=== PATIENT | female | born 1955 | race Caucasian/White ===

== ENCOUNTER 2017-09-01 01:26 | Inpatient (IN) | payer MEDICAID ==
[~2017-09-01] VITALS: Ht 175.3 cm; Wt 55.1 kg
[~2017-09-01 01:26] MED LIST: ASPI-611 PO; ATEN25TA7 PO; CALC668T PO; CLON-529 PO; CLOP75TA35 PO; DIPH-423 PO; FOLI1TAB34 PO; FURO40TA4 PO; GABA-532 PO; HYDR-4069 PO; LACT1CAP57 PO; LANTUS SQ; ONDA4TAB9 PO; PROP15TA PO; QUELT PO
[2017-09-01] MEDS ORDERED: HYDR-4069 PO (03:51)
[2017-09-01] MEDS ORDERED: ondansetron/PF 4mg/2ml inj IV PRN (04:00)
[2017-09-01] MEDS ORDERED: acetaminophen 325mg tablet PO PRN (04:00)
[2017-09-01] MEDS ORDERED: morphine 2 MG/ML inj. syringe IV PRN (04:00)
[2017-09-01 04:19] VITALS: BP 168/75
[2017-09-01] MEDS: morphine 2 MG/ML inj. syringe IV PRN ×2 (04:27→09:24)
[2017-09-01 06:00] VITALS: BP 167/84
[2017-09-01 06:17] LABS: BASOPHILS % (AUTO) 0.5 % (0-1); EOSINOPHILS # (AUTO) 0.3 X10'3 (0-0.9); EOSINOPHILS % (AUTO) 4.5 % (0-6); HEMATOCRIT 33.3 % (35.0-45.0); HEMOGLOBIN 11.3 g/dl (12.0-16.0); LYMPHOCYTES # (AUTO) 1.1 X10'3 (1.1-4.8); LYMPHOCYTES % (AUTO) 16.7 % (21-51); MEAN CORPUSCULAR HEMOGLOBIN 32.2 PG (27.0-31.0); MEAN CORPUSCULAR VOLUME 94.7 FL (78-98); MEAN PLATELET VOLUME 8.5 FL (7.4-10.4); MONOCYTES # (AUTO) 0.4 X10'3 (0-0.9); MONOCYTES % (AUTO) 5.8 % (2-12); NEUTROPHILS # (AUTO) 4.6 X10'3 (1.8-7.7); NEUTROPHILS % (AUTO) 72.5 % (42-75); PLATELET COUNT 116 X10'3 (140-440); RED BLOOD COUNT 3.51 X10'6 (4.20-5.60); RED CELL DISTRIBUTION WIDTH 16.7 % (11.5-14.5); WHITE BLOOD COUNT 6.3 X10'3 (4.5-11.0)
[2017-09-01 06:52] LABS: INR 1.1 INR; PARTIAL THROMBOPLASTIN TIME 28 SECONDS (22-32)
[2017-09-01] MEDS ORDERED: PROPANTHELINE BROMIDE 15 MG PO SCH (07:00)
[2017-09-01 07:46] LABS: ALANINE AMINOTRANSFERASE 38 U/L (12-78); ALBUMIN 2.9 G/DL (3.4-5.0); ALBUMIN/GLOBULIN RATIO 0.6 (1.1-1.5); ALKALINE PHOSPHATASE 68 IU/L (46-116); ANION GAP 10 (8-16); ASPARTATE AMINO TRANSFERASE 42 U/L (10-37); BILIRUBIN,TOTAL 0.8 MG/DL (0.1-1.0); BLOOD UREA NITROGEN 27 MG/DL (7-18); BUN/CREATININE RATIO 7.5 (6.6-38.0); CALCIUM 7.5 MG/DL (8.5-10.1); CHLORIDE 102 MMOL/L (99-107); GLUCOSE 79 MG/DL (70-104); MAGNESIUM 1.7 MG/DL (1.5-2.4); PHOSPHORUS 4.1 MG/DL (2.3-4.5); POTASSIUM 3.9 MMOL/L (3.5-5.1); SODIUM 143 MMOL/L (135-145); TOTAL CARBON DIOXIDE 31.4 MMOL/L (24-32); eGFR 13 ML/MIN
[2017-09-01] MEDS: gabapentin 300mg capsule PO SCH ×3 (08:00→20:10)
[2017-09-01] MEDS ORDERED: heparin 1,000unit/ml 10ml vial 10 ML IV ONE (08:03)
[2017-09-01] MEDS ORDERED: albumin (human) 25% 100ml IV 100 ML IV PRN (08:05)
[2017-09-01] MEDS ORDERED: heparin 1,000 units/ml 10ml inj IV ONE (08:05)
[2017-09-01] MEDS: aspirin 81mg tablet.DR PO SCH (09:28)
[2017-09-01] MEDS: atenolol 50mg tablet PO SCH ×2 (09:28→20:09)
[2017-09-01] MEDS: clopidogrel 75mg tablet PO SCH (09:29)
[2017-09-01] MEDS: furosemide 40mg tablet PO SCH ×2 (09:29→20:10)
[2017-09-01] MEDS: cloNIDine 0.1 mg tablet PO SCH ×3 (09:29→20:10)
[2017-09-01] MEDS: heparin, porcine 5000 units/ml vial SQ SCH ×2 (09:30→20:11)
[2017-09-01] MEDS: hydrALAZINE 25 MG tablet PO SCH ×2 (09:30→16:33)
[2017-09-01] MEDS: docusate sod 100mg capsule PO SCH ×2 (09:32→20:08)
[2017-09-01] MEDS ORDERED: LIDOcaine 1% (10mg/ml) 2ml vial SQ ONE (10:00)
[2017-09-01] MEDS ORDERED: morphine 2 MG/ML inj. syringe IM PRN (10:20)
[2017-09-01 11:00] VITALS: BP 151/79
[2017-09-01] MEDS: PROPANTHELINE BROMIDE 15 MG PO SCH ×2 (11:32→16:23)
[2017-09-01] MEDS: morphine 2 MG/ML inj. syringe IM PRN ×2 (13:51→20:08)
[2017-09-01 15:00] VITALS: BP 138/62
[2017-09-01 21:31] VITALS: BP 155/80
[2017-09-01 23:13] VITALS: BP 131/67
[2017-09-02] MEDS: hydrALAZINE 25 MG tablet PO SCH ×3 (00:23→16:32)
[2017-09-02 04:00] VITALS: BP 135/69
[2017-09-02 06:00] VITALS: BP 131/65
[2017-09-02] MEDS: PROPANTHELINE BROMIDE 15 MG PO SCH ×3 (06:45→16:30)
[2017-09-02] MEDS: docusate sod 100mg capsule PO SCH ×2 (08:00→20:00)
[2017-09-02] MEDS: cloNIDine 0.1 mg tablet PO SCH ×3 (08:19→20:40)
[2017-09-02] MEDS: clopidogrel 75mg tablet PO SCH (08:20)
[2017-09-02] MEDS: gabapentin 300mg capsule PO SCH ×2 (08:22→12:35)
[2017-09-02] MEDS: furosemide 40mg tablet PO SCH ×2 (08:22→20:40)
[2017-09-02] MEDS: aspirin 81mg tablet.DR PO SCH (08:23)
[2017-09-02] MEDS: atenolol 50mg tablet PO SCH ×2 (08:24→20:41)
[2017-09-02] MEDS: heparin, porcine 5000 units/ml vial SQ SCH ×2 (08:25→20:40)
[2017-09-02 08:27] LABS: HEMATOCRIT 31.6 % (35.0-45.0); HEMOGLOBIN 10.7 g/dl (12.0-16.0); MEAN CORPUSCULAR HEMOGLOBIN 32.1 PG (27.0-31.0); MEAN CORPUSCULAR HGB CONC 33.9 % (33.0-36.5); MEAN CORPUSCULAR VOLUME 94.8 FL (78-98); MEAN PLATELET VOLUME 8.9 FL (7.4-10.4); PLATELET COUNT 100 X10'3 (140-440); RED BLOOD COUNT 3.34 X10'6 (4.20-5.60); RED CELL DISTRIBUTION WIDTH 17.6 % (11.5-14.5); WHITE BLOOD COUNT 6.3 X10'3 (4.5-11.0)
[2017-09-02] MEDS: morphine 2 MG/ML inj. syringe IM PRN ×3 (08:31→20:42)
[2017-09-02 08:37] LABS: ALANINE AMINOTRANSFERASE 40 U/L (12-78); ALBUMIN 2.7 G/DL (3.4-5.0); ALBUMIN/GLOBULIN RATIO 0.5 (1.1-1.5); ALKALINE PHOSPHATASE 69 IU/L (46-116); ANION GAP 6 (8-16); ASPARTATE AMINO TRANSFERASE 45 U/L (10-37); BILIRUBIN,TOTAL 0.6 MG/DL (0.1-1.0); BLOOD UREA NITROGEN 30 MG/DL (7-18); BUN/CREATININE RATIO 7.5 (6.6-38.0); CALCIUM 6.9 MG/DL (8.5-10.1); CHLORIDE 98 MMOL/L (99-107); GLUCOSE 129 MG/DL (70-104); MAGNESIUM 1.7 MG/DL (1.5-2.4); PHOSPHORUS 4.4 MG/DL (2.3-4.5); SODIUM 135 MMOL/L (135-145); TOTAL CARBON DIOXIDE 30.7 MMOL/L (24-32); TOTAL PROTEIN 7.7 G/DL (6.4-8.2); eGFR 11 ML/MIN
[2017-09-02 10:03] LABS: BASOPHILS % (MANUAL) 2 % (0-1); EOSINOPHILS % (MANUAL) 1 % (0-6); LYMPHOCYTES % (MANUAL) 25 % (21-51); MONOCYTES % (MANUAL) 8 % (2-12); NEUTROPHILS % (MANUAL) 64 % (42-75); PLATELET ESTIMATE DECREASED; TOTAL CELLS COUNTED 100
[2017-09-02 10:04] LABS: ANISOCYTOSIS 1+; LARGE PLATELETS FEW; TARGET CELLS FEW
[2017-09-02 11:00] VITALS: BP 151/74
[2017-09-02 15:00] VITALS: BP 140/68
[2017-09-02 19:00] VITALS: BP 137/71
[2017-09-02 23:00] VITALS: BP 153/76
[2017-09-03] MEDS: hydrALAZINE 25 MG tablet PO SCH ×4 (00:56→23:49)
[2017-09-03 03:00] VITALS: BP 134/72
[2017-09-03 05:21] LABS: BASOPHILS # (AUTO) 0.1 X10'3 (0-0.2); EOSINOPHILS # (AUTO) 0.2 X10'3 (0-0.9); HEMATOCRIT 30.7 % (35.0-45.0); HEMOGLOBIN 10.5 g/dl (12.0-16.0); LYMPHOCYTES # (AUTO) 1.7 X10'3 (1.1-4.8); LYMPHOCYTES % (AUTO) 27.3 % (21-51); MEAN CORPUSCULAR HEMOGLOBIN 32.5 PG (27.0-31.0); MEAN CORPUSCULAR HGB CONC 34.2 % (33.0-36.5); MEAN CORPUSCULAR VOLUME 94.9 FL (78-98); MEAN PLATELET VOLUME 8.9 FL (7.4-10.4); MONOCYTES # (AUTO) 0.4 X10'3 (0-0.9); MONOCYTES % (AUTO) 6.6 % (2-12); NEUTROPHILS # (AUTO) 3.8 X10'3 (1.8-7.7); NEUTROPHILS % (AUTO) 61.1 % (42-75); PLATELET COUNT 98 X10'3 (140-440); RED BLOOD COUNT 3.24 X10'6 (4.20-5.60); RED CELL DISTRIBUTION WIDTH 17.3 % (11.5-14.5); WHITE BLOOD COUNT 6.1 X10'3 (4.5-11.0)
[2017-09-03 05:34] LABS: ALANINE AMINOTRANSFERASE 40 U/L (12-78); ALBUMIN 2.7 G/DL (3.4-5.0); ALBUMIN/GLOBULIN RATIO 0.6 (1.1-1.5); ALKALINE PHOSPHATASE 86 IU/L (46-116); ANION GAP 7 (8-16); ASPARTATE AMINO TRANSFERASE 47 U/L (10-37); BILIRUBIN,TOTAL 0.6 MG/DL (0.1-1.0); BLOOD UREA NITROGEN 42 MG/DL (7-18); BUN/CREATININE RATIO 8.8 (6.6-38.0); CALCIUM 6.6 MG/DL (8.5-10.1); CHLORIDE 96 MMOL/L (99-107); MAGNESIUM 1.5 MG/DL (1.5-2.4); PHOSPHORUS 4.8 MG/DL (2.3-4.5); POTASSIUM 5.2 MMOL/L (3.5-5.1); SODIUM 132 MMOL/L (135-145); TOTAL CARBON DIOXIDE 28.9 MMOL/L (24-32); TOTAL PROTEIN 7.6 G/DL (6.4-8.2); eGFR 9 ML/MIN
[2017-09-03 05:48] LABS: GLUCOSE 133 MG/DL (70-104)
[2017-09-03] MEDS: morphine 2 MG/ML inj. syringe IM PRN ×4 (05:48→22:06)
[2017-09-03 07:00] VITALS: BP 138/76
[2017-09-03] MEDS: PROPANTHELINE BROMIDE 15 MG PO SCH ×3 (07:00→16:05)
[2017-09-03] MEDS: clopidogrel 75mg tablet PO SCH (07:36)
[2017-09-03] MEDS: cloNIDine 0.1 mg tablet PO SCH ×3 (07:36→20:30)
[2017-09-03] MEDS: furosemide 40mg tablet PO SCH ×2 (07:36→20:30)
[2017-09-03] MEDS: gabapentin 300mg capsule PO SCH (07:37)
[2017-09-03] MEDS: aspirin 81mg tablet.DR PO SCH (07:37)
[2017-09-03] MEDS: heparin, porcine 5000 units/ml vial SQ SCH ×2 (07:40→20:31)
[2017-09-03] MEDS: docusate sod 100mg capsule PO SCH ×2 (07:43→20:00)
[2017-09-03] MEDS ORDERED: LIDOcaine 1% (10mg/ml) 2ml vial SQ ONE (08:00)
[2017-09-03] MEDS ORDERED: epoetin 20,000 units/ml inj IV ONE (08:00)
[2017-09-03] MEDS ORDERED: normal saline 1000ml 250 ML IV PRN (08:00)
[2017-09-03] MEDS ORDERED: heparin 1,000 units/ml 10ml inj IV ONE (08:00)
[2017-09-03 11:00] VITALS: BP 128/69
[2017-09-03] MEDS: oxybutynin 5mg tablet PO SCH ×2 (13:00→20:30)
[2017-09-03] MEDS ORDERED: oxybutynin 5mg tablet PO SCH (14:40)
[2017-09-03 15:00] VITALS: BP 165/86
[2017-09-03] MEDS ORDERED: oxybutynin 5mg tablet PO ONE (16:15)
[2017-09-03 19:00] VITALS: BP 162/77
[2017-09-03 23:00] VITALS: BP 170/85
[2017-09-04 03:00] VITALS: BP 159/70
[2017-09-04] MEDS: morphine 2 MG/ML inj. syringe IM PRN ×4 (03:06→16:35)
[2017-09-04 03:22] LABS: CLARITY,URINE CLEAR (Clear); COLOR,URINE YELLOW (Yellow); GLUCOSE, URINE 100 mg/dl (Neg); KETONES,URINE NEGATIVE (Neg); LEUKOCYTE ESTERASE ,URINE LARGE (Neg); NITRITES, URINE NEGATIVE (Neg); OCCULT BLOOD,URINE MODERATE (Neg); PH,URINE 7.5 (4.8-8.0); PROTEIN,URINE 100 mg/dl (Neg); UROBILINOGEN,URINE 0.2 E.U/dL (0.2-1.0)
[2017-09-04 03:28] LABS: UA COLLECTION TYPE VOIDED
[2017-09-04 03:29] LABS: BACTERIA,URINE 3+ /HPF (Neg); SQUAMOUS EPITHELIAL CELL,UR MODERATE /LPF (FEW); WBC,URINE 50-100 /HPF (0-4)
[2017-09-04 05:49] LABS: BASOPHILS % (AUTO) 0.1 % (0-1); EOSINOPHILS # (AUTO) 0.2 X10'3 (0-0.9); EOSINOPHILS % (AUTO) 4.2 % (0-6); HEMATOCRIT 31.6 % (35.0-45.0); LYMPHOCYTES # (AUTO) 1.2 X10'3 (1.1-4.8); LYMPHOCYTES % (AUTO) 21.7 % (21-51); MEAN CORPUSCULAR HEMOGLOBIN 32.9 PG (27.0-31.0); MEAN CORPUSCULAR HGB CONC 34.8 % (33.0-36.5); MEAN CORPUSCULAR VOLUME 94.8 FL (78-98); MEAN PLATELET VOLUME 8.8 FL (7.4-10.4); MONOCYTES # (AUTO) 0.3 X10'3 (0-0.9); MONOCYTES % (AUTO) 4.6 % (2-12); NEUTROPHILS # (AUTO) 3.9 X10'3 (1.8-7.7); NEUTROPHILS % (AUTO) 69.4 % (42-75); PLATELET COUNT 94 X10'3 (140-440); RED BLOOD COUNT 3.33 X10'6 (4.20-5.60); RED CELL DISTRIBUTION WIDTH 17.4 % (11.5-14.5); WHITE BLOOD COUNT 5.7 X10'3 (4.5-11.0)
[2017-09-04 06:00] VITALS: BP 161/85
[2017-09-04 06:04] LABS: ALANINE AMINOTRANSFERASE 31 U/L (12-78); ALBUMIN 2.7 G/DL (3.4-5.0); ALBUMIN/GLOBULIN RATIO 0.5 (1.1-1.5); ALKALINE PHOSPHATASE 90 IU/L (46-116); ANION GAP 7 (8-16); ASPARTATE AMINO TRANSFERASE 41 U/L (10-37); BILIRUBIN,TOTAL 0.7 MG/DL (0.1-1.0); BLOOD UREA NITROGEN 22 MG/DL (7-18); BUN/CREATININE RATIO 6.7 (6.6-38.0); CALCIUM 6.9 MG/DL (8.5-10.1); CHLORIDE 98 MMOL/L (99-107); GLUCOSE 155 MG/DL (70-104); MAGNESIUM 1.7 MG/DL (1.5-2.4); POTASSIUM 4.3 MMOL/L (3.5-5.1); SODIUM 135 MMOL/L (135-145); TOTAL CARBON DIOXIDE 29.6 MMOL/L (24-32); eGFR 14 ML/MIN
[2017-09-04] MEDS: PROPANTHELINE BROMIDE 15 MG PO SCH ×2 (07:00→11:49)
[2017-09-04] MEDS: heparin, porcine 5000 units/ml vial SQ SCH ×2 (07:18→20:00)
[2017-09-04] MEDS: gabapentin 300mg capsule PO SCH (07:18)
[2017-09-04] MEDS: cloNIDine 0.1 mg tablet PO SCH ×3 (07:19→20:01)
[2017-09-04] MEDS: furosemide 40mg tablet PO SCH ×2 (07:19→20:00)
[2017-09-04] MEDS: clopidogrel 75mg tablet PO SCH (07:19)
[2017-09-04] MEDS: oxybutynin 5mg tablet PO SCH ×3 (07:19→20:01)
[2017-09-04] MEDS: hydrALAZINE 25 MG tablet PO SCH ×2 (07:19→16:03)
[2017-09-04] MEDS: aspirin 81mg tablet.DR PO SCH (07:19)
[2017-09-04] MEDS: metoprolol succinate 25mg (24-HOUR) SR. Tablet PO SCH (07:20)
[2017-09-04] MEDS: docusate sod 100mg capsule PO SCH ×2 (07:20→20:00)
[2017-09-04 11:00] VITALS: BP 153/76
[2017-09-04 15:00] VITALS: BP 143/75
[2017-09-04 19:00] VITALS: BP 164/84
[2017-09-04] MEDS: diphenoxylate/atropine tablet (Lomotil) PO PRN (20:02)
[2017-09-04 23:00] VITALS: BP 140/74
[2017-09-05] MEDS: hydrALAZINE 25 MG tablet PO SCH ×4 (00:01→23:52)
[2017-09-05] MEDS: morphine 2 MG/ML inj. syringe IM PRN ×3 (00:02→10:33)
[2017-09-05 03:00] VITALS: BP 150/66
[2017-09-05 05:16] LABS: BASOPHILS % (AUTO) 0.6 % (0-1); EOSINOPHILS # (AUTO) 0.4 X10'3 (0-0.9); EOSINOPHILS % (AUTO) 6.6 % (0-6); HEMATOCRIT 30.2 % (35.0-45.0); HEMOGLOBIN 10.4 g/dl (12.0-16.0); LYMPHOCYTES # (AUTO) 1.6 X10'3 (1.1-4.8); LYMPHOCYTES % (AUTO) 28.5 % (21-51); MEAN CORPUSCULAR HEMOGLOBIN 32.8 PG (27.0-31.0); MEAN CORPUSCULAR HGB CONC 34.4 % (33.0-36.5); MEAN CORPUSCULAR VOLUME 95.4 FL (78-98); MEAN PLATELET VOLUME 8.9 FL (7.4-10.4); MONOCYTES # (AUTO) 0.4 X10'3 (0-0.9); MONOCYTES % (AUTO) 7.5 % (2-12); NEUTROPHILS # (AUTO) 3.2 X10'3 (1.8-7.7); NEUTROPHILS % (AUTO) 56.8 % (42-75); PLATELET COUNT 100 X10'3 (140-440); RED BLOOD COUNT 3.16 X10'6 (4.20-5.60); RED CELL DISTRIBUTION WIDTH 16.8 % (11.5-14.5); WHITE BLOOD COUNT 5.6 X10'3 (4.5-11.0)
[2017-09-05 05:41] LABS: ALANINE AMINOTRANSFERASE 28 U/L (12-78); ALBUMIN 2.7 G/DL (3.4-5.0); ALBUMIN/GLOBULIN RATIO 0.5 (1.1-1.5); ALKALINE PHOSPHATASE 80 IU/L (46-116); ANION GAP 10 (8-16); ASPARTATE AMINO TRANSFERASE 33 U/L (10-37); BILIRUBIN,TOTAL 0.7 MG/DL (0.1-1.0); BLOOD UREA NITROGEN 33 MG/DL (7-18); BUN/CREATININE RATIO 7.8 (6.6-38.0); CALCIUM 6.7 MG/DL (8.5-10.1); CHLORIDE 95 MMOL/L (99-107); CREATININE 4.23 MG/DL (0.40-0.90); GLUCOSE 125 MG/DL (70-104); MAGNESIUM 1.8 MG/DL (1.5-2.4); PHOSPHORUS 5.7 MG/DL (2.3-4.5); POTASSIUM 4.9 MMOL/L (3.5-5.1); SODIUM 131 MMOL/L (135-145); TOTAL CARBON DIOXIDE 26.1 MMOL/L (24-32); TOTAL PROTEIN 7.8 G/DL (6.4-8.2); eGFR 11 ML/MIN
[2017-09-05 06:00] VITALS: BP 137/66
[2017-09-05 07:43] LABS: ANISOCYTOSIS 1+; PLATELET ESTIMATE DECREASED
[2017-09-05 07:44] LABS: POIKILOCYTOSIS FEW
[2017-09-05] MEDS: cloNIDine 0.1 mg tablet PO SCH ×3 (07:47→22:03)
[2017-09-05] MEDS: metoprolol succinate 25mg (24-HOUR) SR. Tablet PO SCH (07:47)
[2017-09-05] MEDS: docusate sod 100mg capsule PO SCH ×2 (07:48→19:23)
[2017-09-05] MEDS: furosemide 40mg tablet PO SCH ×2 (07:53→19:23)
[2017-09-05] MEDS: diphenoxylate/atropine tablet (Lomotil) PO PRN (07:53)
[2017-09-05] MEDS: gabapentin 300mg capsule PO SCH (07:53)
[2017-09-05] MEDS: heparin, porcine 5000 units/ml vial SQ SCH ×2 (07:54→19:24)
[2017-09-05] MEDS: clopidogrel 75mg tablet PO SCH (07:57)
[2017-09-05] MEDS: oxybutynin 5mg tablet PO SCH ×3 (07:58→22:03)
[2017-09-05] MEDS: aspirin 81mg tablet.DR PO SCH (07:58)
[2017-09-05] MEDS ORDERED: normal saline 1000ml 250 ML IV PRN (09:12)
[2017-09-05] MEDS ORDERED: heparin 1,000 units/ml 10ml inj IV ONE (09:15)
[2017-09-05] MEDS ORDERED: LIDOcaine 1% (10mg/ml) 2ml vial SQ ONE (09:15)
[2017-09-05] MEDS ORDERED: epoetin 20,000 units/ml inj IV ONE (09:15)
[2017-09-05 11:00] VITALS: BP 156/74
[2017-09-05 15:00] VITALS: BP 140/67
[2017-09-05] MEDS ORDERED: ondansetron 4mg/5ml UD cup PO PRN (15:15)
[2017-09-05] MEDS ORDERED: morphine 5 MG/ML injection IM PRN (16:16)
[2017-09-05] MEDS: morphine 5 MG/ML injection IM PRN ×2 (16:24→23:58)
[2017-09-05 19:00] VITALS: BP 151/75
[2017-09-05] MEDS: HYDROcodone/acetaminophen 5mg/325mg tablet PO PRN (19:24)
[2017-09-05] MEDS ORDERED: MESSAGE TO PHARMACY PO ONE (19:35)
[2017-09-05] MEDS ORDERED: insulin Lispro (HumaLOG) vial - multi-dose SQ SCH (19:35)
[2017-09-05] MEDS ORDERED: glucagon, human recombinant 1mg kit SUBCUT PRN (19:35)
[2017-09-05] MEDS ORDERED: dextrose 50%-water 50ml dispensing syringe IV PRN ×2 (19:35)
[2017-09-05] MEDS ORDERED: dextrose ORAL solution 15 GM/59 ML bottle PO PRN ×2 (19:35)
[2017-09-05] MEDS: insulin glargine (Lantus) pen - multi-dose SQ SCH (21:00)
[2017-09-05 22:00] VITALS: BP 151/68
[2017-09-06] VITALS (7 sets, daily range): BP systolic 138–169; BP diastolic 64–83
[2017-09-06 06:29] LABS: BASOPHILS # (AUTO) 0.1 X10'3 (0-0.2); BASOPHILS % (AUTO) 1.2 % (0-1); EOSINOPHILS # (AUTO) 0.3 X10'3 (0-0.9); HEMATOCRIT 30.9 % (35.0-45.0); HEMOGLOBIN 10.5 g/dl (12.0-16.0); LYMPHOCYTES # (AUTO) 1.2 X10'3 (1.1-4.8); LYMPHOCYTES % (AUTO) 19.3 % (21-51); MEAN CORPUSCULAR HGB CONC 33.8 % (33.0-36.5); MEAN CORPUSCULAR VOLUME 97.6 FL (78-98); MEAN PLATELET VOLUME 8.7 FL (7.4-10.4); MONOCYTES # (AUTO) 0.5 X10'3 (0-0.9); MONOCYTES % (AUTO) 7.4 % (2-12); NEUTROPHILS # (AUTO) 4.3 X10'3 (1.8-7.7); NEUTROPHILS % (AUTO) 67.1 % (42-75); PLATELET COUNT 107 X10'3 (140-440); RED BLOOD COUNT 3.17 X10'6 (4.20-5.60); RED CELL DISTRIBUTION WIDTH 17.8 % (11.5-14.5); WHITE BLOOD COUNT 6.4 X10'3 (4.5-11.0)
[2017-09-06 06:44] LABS: ALANINE AMINOTRANSFERASE 26 U/L (12-78); ALBUMIN 2.6 G/DL (3.4-5.0); ALBUMIN/GLOBULIN RATIO 0.5 (1.1-1.5); ALKALINE PHOSPHATASE 74 IU/L (46-116); ANION GAP 9 (8-16); ASPARTATE AMINO TRANSFERASE 29 U/L (10-37); BILIRUBIN,TOTAL 0.6 MG/DL (0.1-1.0); BLOOD UREA NITROGEN 15 MG/DL (7-18); CALCIUM 6.7 MG/DL (8.5-10.1); CHLORIDE 96 MMOL/L (99-107); CREATININE 3.03 MG/DL (0.40-0.90); GLUCOSE 149 MG/DL (70-104); MAGNESIUM 1.7 MG/DL (1.5-2.4); PHOSPHORUS 4.1 MG/DL (2.3-4.5); POTASSIUM 4.2 MMOL/L (3.5-5.1); SODIUM 134 MMOL/L (135-145); TOTAL CARBON DIOXIDE 28.6 MMOL/L (24-32); TOTAL PROTEIN 7.6 G/DL (6.4-8.2); eGFR 16 ML/MIN
[2017-09-06] MEDS: cloNIDine 0.1 mg tablet PO SCH ×3 (08:00→20:28)
[2017-09-06] MEDS: metoprolol succinate 25mg (24-HOUR) SR. Tablet PO SCH (08:00)
[2017-09-06] MEDS: docusate sod 100mg capsule PO SCH ×2 (08:00→19:05)
[2017-09-06] MEDS: clopidogrel 75mg tablet PO SCH (08:10)
[2017-09-06] MEDS: oxybutynin 5mg tablet PO SCH ×3 (08:10→20:28)
[2017-09-06] MEDS: hydrALAZINE 25 MG tablet PO SCH ×2 (08:10→15:26)
[2017-09-06] MEDS: furosemide 40mg tablet PO SCH ×2 (08:10→20:27)
[2017-09-06] MEDS: aspirin 81mg tablet.DR PO SCH (08:10)
[2017-09-06] MEDS: gabapentin 300mg capsule PO SCH (08:10)
[2017-09-06] MEDS: heparin, porcine 5000 units/ml vial SQ SCH ×2 (08:11→20:28)
[2017-09-06] MEDS: morphine 5 MG/ML injection IM PRN ×2 (10:25→15:24)
[2017-09-06] MEDS: insulin glargine (Lantus) pen - multi-dose SQ SCH (21:00)
[2017-09-06 21:02] LABS: CLARITY,URINE CLOUDY (Clear); COLOR,URINE YELLOW (Yellow); GLUCOSE, URINE NEGATIVE (Neg); KETONES,URINE NEGATIVE (Neg); LEUKOCYTE ESTERASE ,URINE LARGE (Neg); NITRITES, URINE NEGATIVE (Neg); OCCULT BLOOD,URINE MODERATE (Neg); PH,URINE 7.5 (4.8-8.0); PROTEIN,URINE >=300 mg/dl (Neg); UROBILINOGEN,URINE 0.2 E.U/dL (0.2-1.0)
[2017-09-06 21:03] LABS: UA COLLECTION TYPE STRAIGHT CATH
[2017-09-06 21:09] LABS: BACTERIA,URINE 4+ /HPF (Neg); SQUAMOUS EPITHELIAL CELL,UR MODERATE /LPF (FEW); WBC,URINE TNTC /HPF (0-4)
[2017-09-06 21:10] LABS: RBC,URINE 20-50 /HPF (0-2)
[2017-09-06] MEDS: HYDROcodone/acetaminophen 5mg/325mg tablet PO PRN (21:54)
[2017-09-07] MEDS: hydrALAZINE 25 MG tablet PO SCH ×2 (00:23→08:26)
[2017-09-07] MEDS: morphine 5 MG/ML injection IM PRN (00:33)
[2017-09-07 03:00] VITALS: BP 171/81
[2017-09-07] MEDS: metoprolol succinate 25mg (24-HOUR) SR. Tablet PO SCH (08:00)
[2017-09-07] MEDS: cloNIDine 0.1 mg tablet PO SCH (08:00)
[2017-09-07] MEDS: clopidogrel 75mg tablet PO SCH (08:24)
[2017-09-07] MEDS: aspirin 81mg tablet.DR PO SCH (08:24)
[2017-09-07] MEDS: gabapentin 300mg capsule PO SCH (08:25)
[2017-09-07] MEDS: docusate sod 100mg capsule PO SCH (08:26)
[2017-09-07] MEDS: oxybutynin 5mg tablet PO SCH (08:27)
[2017-09-07] MEDS: furosemide 40mg tablet PO SCH (08:27)
[2017-09-07] MEDS: heparin, porcine 5000 units/ml vial SQ SCH (08:28)
== END 2017-09-07 09:50 | disposition home or self-care (01) | DRG 470 ==
LOC: PCU 3S 03:22
PROVIDERS: ADMIT Internal Medicine Critical Care Medicine; ATTEND Internal Medicine Critical Care Medicine
PROC: 5A1D70Z Performance of Urinary Filtration, Intermittent, Less than 6 Hours Per Day (ICD-10-PCS; 2017-09-01)
PROC: 5A1D70Z Performance of Urinary Filtration, Intermittent, Less than 6 Hours Per Day (ICD-10-PCS; 2017-09-03)
PROC: 5A1D70Z Performance of Urinary Filtration, Intermittent, Less than 6 Hours Per Day (ICD-10-PCS; principal; 2017-09-05)
DX: I12.0 Hypertensive chronic kidney disease with stage 5 chronic kidney disease or end stage renal disease (principal); J96.21 Acute and chronic respiratory failure with hypoxia; N18.6 End stage renal disease; E11.22 Type 2 diabetes mellitus with diabetic chronic kidney disease; I25.10 Atherosclerotic heart disease of native coronary artery without angina pectoris; F17.210 Nicotine dependence, cigarettes, uncomplicated; B19.20 Unspecified viral hepatitis C without hepatic coma; R19.7 Diarrhea, unspecified; N30.90 Cystitis, unspecified without hematuria; Z79.82 Long term (current) use of aspirin; Z79.899 Other long term (current) drug therapy; Z91.15 Patient's noncompliance with renal dialysis; Z99.2 Dependence on renal dialysis; Z68.1 Body mass index [BMI] 19.9 or less, adult; Z79.4 Long term (current) use of insulin; Z83.3 Family history of diabetes mellitus; Z82.49 Family history of ischemic heart disease and other diseases of the circulatory system; Z82.5 Family history of asthma and other chronic lower respiratory diseases
CPT/HCPCS: 36415; 71045; 80053; 81001; 82948; 83735; 83880; 84100; 85025; 85610; 85730; 87045; 87046; 87070; 87077; 87088; 87186; 89055; 90935; 99285; A4353; A6212; A6213; A6250; A6402; G0257; J0885; J1610; J1644; J1815; J2270; J2405; J3490; J7030

== ENCOUNTER 2017-11-12 15:52 | Inpatient (IN) | payer MEDICAID ==
[~2017-11-12] VITALS: Ht 172.7 cm; Wt 52.1 kg
[~2017-11-12 15:52] MED LIST changes: -DIPH-423 PO; -FOLI1TAB34 PO; -LACT1CAP57 PO; -ONDA4TAB9 PO; -QUELT PO
[2017-11-12] MEDS ORDERED: nitroGLYCERIN 0.4mg SUBLingual tab SL PRN (16:35)
[2017-11-12 17:24] LABS: BASOPHILS % (AUTO) 0 % (0-1); EOSINOPHILS # (AUTO) 0.1 X10'3 (0-0.9); EOSINOPHILS % (AUTO) 1.7 % (0-6); HEMATOCRIT 29.4 % (35.0-45.0); HEMOGLOBIN 9.5 g/dl (12.0-16.0); LYMPHOCYTES # (AUTO) 1.2 X10'3 (1.1-4.8); LYMPHOCYTES % (AUTO) 14.5 % (21-51); MEAN CORPUSCULAR HEMOGLOBIN 36.4 PG (27.0-31.0); MEAN CORPUSCULAR HGB CONC 32.5 % (33.0-36.5); MEAN CORPUSCULAR VOLUME 112.1 FL (78-98); MEAN PLATELET VOLUME 8.2 FL (7.4-10.4); MONOCYTES # (AUTO) 0.2 X10'3 (0-0.9); MONOCYTES % (AUTO) 2.7 % (2-12); NEUTROPHILS # (AUTO) 6.7 X10'3 (1.8-7.7); NEUTROPHILS % (AUTO) 81.1 % (42-75); PLATELET COUNT 126 X10'3 (140-440); RED BLOOD COUNT 2.62 X10'6 (4.20-5.60); RED CELL DISTRIBUTION WIDTH 17.7 % (11.5-14.5); WHITE BLOOD COUNT 8.2 X10'3 (4.5-11.0)
[2017-11-12 17:30] LABS: PARTIAL THROMBOPLASTIN TIME 28 SECONDS (22-32); PROTHROMBIN TIME 10.8 SECONDS (9.0-12.0)
[2017-11-12 17:44] LABS: ALANINE AMINOTRANSFERASE 51 U/L (12-78); ALBUMIN 2.9 G/DL (3.4-5.0); ALBUMIN/GLOBULIN RATIO 0.6 (1.1-1.5); ALKALINE PHOSPHATASE 86 IU/L (46-116); ANION GAP 9 (8-16); ASPARTATE AMINO TRANSFERASE 65 U/L (10-37); BILIRUBIN,TOTAL 1.1 MG/DL (0.1-1.0); BLOOD UREA NITROGEN 21 MG/DL (7-18); BUN/CREATININE RATIO 7.6 (6.6-38.0); CALCIUM 8.4 MG/DL (8.5-10.1); CHLORIDE 102 MMOL/L (99-107); CREATININE 2.77 MG/DL (0.40-0.90); LIPASE 129 U/L (73-393); SODIUM 141 MMOL/L (135-145); TOTAL CARBON DIOXIDE 29.6 MMOL/L (24-32); eGFR 17 ML/MIN
[2017-11-12 17:45] LABS: GLUCOSE 172 MG/DL (70-104); POTASSIUM 3.4 MMOL/L (3.5-5.1)
[2017-11-12] MEDS ORDERED: morphine 4 MG/ML inj SYRINge IV ONE (17:55)
[2017-11-12 18:46] LABS: ANISOCYTOSIS 2+; PLATELET ESTIMATE DECREASED
[2017-11-12 18:48] LABS: HYPOCHROMASIA 2+; POLYCHROMASIA FEW; SCHISTOCYTES FEW; STOMATOCYTES 1+
[2017-11-12 21:30] VITALS: BP 169/77
[2017-11-12] MEDS ORDERED: ondansetron/PF 4mg/2ml inj IV PRN (22:25)
[2017-11-12] MEDS: HYDROcodone/acetaminophen 5mg/325mg tablet PO PRN (22:39)
[2017-11-12] MEDS: gabapentin 300mg capsule PO SCH (22:39)
[2017-11-12] MEDS: cloNIDine 0.1 mg tablet PO SCH (22:39)
[2017-11-12] MEDS: calcium acetate 667mg (PhosLO) capsule PO SCH (22:40)
[2017-11-12 23:00] VITALS: BP 172/74
[2017-11-12] MEDS: hydrALAZINE 25 MG tablet PO SCH (23:26)
[2017-11-13 00:03] LABS: HEMOGLOBIN A1C < 3.6 % (4.5-6.2)
[2017-11-13 00:12] LABS: CLARITY,URINE CLOUDY (Clear); COLOR,URINE YELLOW (Yellow); GLUCOSE, URINE NEGATIVE (Neg); KETONES,URINE NEGATIVE (Neg); LEUKOCYTE ESTERASE ,URINE TRACE (Neg); NITRITES, URINE NEGATIVE (Neg); OCCULT BLOOD,URINE TRACE-INTACT (Neg); PH,URINE 8.5 (4.8-8.0); PROTEIN,URINE 100 mg/dl (Neg); UROBILINOGEN,URINE 0.2 E.U/dL (0.2-1.0)
[2017-11-13 00:19] LABS: UA COLLECTION TYPE NON-SPECIFIED
[2017-11-13 00:29] LABS: BACTERIA,URINE 4+ /HPF (Neg); RBC,URINE 0-2 /HPF (0-2); SQUAMOUS EPITHELIAL CELL,UR MANY /LPF (FEW); WBC,URINE 30-50 /HPF (0-4)
[2017-11-13 03:00] VITALS: BP 166/76
[2017-11-13 05:31] LABS: BASOPHILS % (AUTO) 0.2 % (0-1); EOSINOPHILS # (AUTO) 0.2 X10'3 (0-0.9); EOSINOPHILS % (AUTO) 2.7 % (0-6); HEMATOCRIT 27.2 % (35.0-45.0); HEMOGLOBIN 8.8 g/dl (12.0-16.0); LYMPHOCYTES # (AUTO) 1.4 X10'3 (1.1-4.8); LYMPHOCYTES % (AUTO) 22.3 % (21-51); MEAN CORPUSCULAR HEMOGLOBIN 36.5 PG (27.0-31.0); MEAN CORPUSCULAR HGB CONC 32.4 % (33.0-36.5); MEAN CORPUSCULAR VOLUME 112.8 FL (78-98); MEAN PLATELET VOLUME 8.2 FL (7.4-10.4); MONOCYTES # (AUTO) 0.3 X10'3 (0-0.9); MONOCYTES % (AUTO) 4.6 % (2-12); NEUTROPHILS # (AUTO) 4.4 X10'3 (1.8-7.7); NEUTROPHILS % (AUTO) 70.2 % (42-75); PLATELET COUNT 116 X10'3 (140-440); RED BLOOD COUNT 2.41 X10'6 (4.20-5.60); RED CELL DISTRIBUTION WIDTH 17.6 % (11.5-14.5); WHITE BLOOD COUNT 6.3 X10'3 (4.5-11.0)
[2017-11-13 05:40] LABS: INR 1.1 INR; PARTIAL THROMBOPLASTIN TIME 29 SECONDS (22-32); PROTHROMBIN TIME 11.4 SECONDS (9.0-12.0)
[2017-11-13 05:46] LABS: ALANINE AMINOTRANSFERASE 44 U/L (12-78); ALBUMIN 2.6 G/DL (3.4-5.0); ALBUMIN/GLOBULIN RATIO 0.6 (1.1-1.5); ALKALINE PHOSPHATASE 72 IU/L (46-116); ANION GAP 6 (8-16); ASPARTATE AMINO TRANSFERASE 60 U/L (10-37); BILIRUBIN,TOTAL 0.9 MG/DL (0.1-1.0); BLOOD UREA NITROGEN 29 MG/DL (7-18); BUN/CREATININE RATIO 8.2 (6.6-38.0); CALCIUM 8.1 MG/DL (8.5-10.1); CHLORIDE 103 MMOL/L (99-107); CREATININE 3.54 MG/DL (0.40-0.90); HDL CHOLESTEROL 22 MG/DL (35-60); LDL CHOLESTEROL 15 MG/DL (50-100); MAGNESIUM 1.8 MG/DL (1.5-2.4); SODIUM 142 MMOL/L (135-145); TOTAL CARBON DIOXIDE 33.5 MMOL/L (24-32); TOTAL PROTEIN 7.2 G/DL (6.4-8.2); TRIGLYCERIDES 98 MG/DL (20-135); eGFR 13 ML/MIN
[2017-11-13 05:53] LABS: CHOLESTEROL < 50 MG/DL (0-200); GLUCOSE 113 MG/DL (70-104); POTASSIUM 4.3 MMOL/L (3.5-5.1)
[2017-11-13 06:30] VITALS: BP 162/79
[2017-11-13 06:59] LABS: ANISOCYTOSIS 2+; PLATELET ESTIMATE DECREASED
[2017-11-13 07:00] LABS: STOMATOCYTES 1+
[2017-11-13] MEDS: cloNIDine 0.1 mg tablet PO SCH ×3 (07:20→20:07)
[2017-11-13] MEDS: atenolol 25mg tablet PO SCH ×2 (07:20→20:07)
[2017-11-13] MEDS: calcium acetate 667mg (PhosLO) capsule PO SCH ×4 (07:20→20:07)
[2017-11-13] MEDS: hydrALAZINE 25 MG tablet PO SCH ×3 (07:20→23:15)
[2017-11-13] MEDS: aspirin 81mg tablet.DR PO SCH (07:20)
[2017-11-13] MEDS: gabapentin 300mg capsule PO SCH ×2 (07:20→12:55)
[2017-11-13] MEDS: clopidogrel 75mg tablet PO SCH (07:21)
[2017-11-13] MEDS: heparin, porcine 5000 units/ml vial SQ SCH ×2 (07:22→20:11)
[2017-11-13] MEDS: furosemide 40mg tablet PO SCH ×2 (07:23→20:08)
[2017-11-13] MEDS: docusate sod 100mg capsule PO SCH ×2 (07:24→20:00)
[2017-11-13] MEDS: HYDROcodone/acetaminophen 5mg/325mg tablet PO PRN ×3 (07:28→20:10)
[2017-11-13] MEDS: insulin glargine (Lantus) pen - multi-dose SQ SCH (07:34)
[2017-11-13] MEDS ORDERED: PROPANTHELINE BROMIDE 15 MG PO SCH (08:00)
[2017-11-13] MEDS ORDERED: non-formulary drug (Aspirin (Aspir 81) 1 TABLET) PO SCH (08:00)
[2017-11-13] MEDS: PROPANTHELINE BROMIDE 15MG TAB PO SCH (08:00)
[2017-11-13] MEDS ORDERED: ATENOLOL PO SCH (08:00)
[2017-11-13] MEDS ORDERED: heparin 1,000unit/ml 10ml vial 10 ML IV ONE (08:46)
[2017-11-13] MEDS ORDERED: albumin (human) 25% 100ml IV 100 ML IV PRN (08:50)
[2017-11-13] MEDS ORDERED: epoetin 20,000 units/ml inj IV ONE (08:50)
[2017-11-13] MEDS ORDERED: heparin 1,000 units/ml 10ml inj IV ONE (08:50)
[2017-11-13] MEDS ORDERED: LIDOcaine 1% (10mg/ml) 2ml vial SQ ONE (09:55)
[2017-11-13 11:00] VITALS: BP 160/77
[2017-11-13 15:00] VITALS: BP 169/80
[2017-11-13 18:00] VITALS: BP 166/81
[2017-11-13] MEDS ORDERED: proCHLORperazine 10 MG/2 ml inj IV ONE (21:40)
[2017-11-13 22:00] VITALS: BP 175/81
[2017-11-14 02:00] VITALS: BP 167/78
[2017-11-14 05:11] LABS: CLARITY,URINE SLIGHTLY CLOUDY (Clear); COLOR,URINE YELLOW (Yellow); GLUCOSE, URINE NEGATIVE (Neg); KETONES,URINE NEGATIVE (Neg); LEUKOCYTE ESTERASE ,URINE MODERATE (Neg); NITRITES, URINE NEGATIVE (Neg); OCCULT BLOOD,URINE SMALL (Neg); PROTEIN,URINE 100 mg/dl (Neg); UROBILINOGEN,URINE 0.2 E.U/dL (0.2-1.0)
[2017-11-14 05:17] LABS: UA COLLECTION TYPE NON-SPECIFIED
[2017-11-14 05:21] LABS: BACTERIA,URINE 3+ /HPF (Neg); MUCUS STRANDS NONE SEEN /LPF (Neg); SQUAMOUS EPITHELIAL CELL,UR MODERATE /LPF (FEW); WBC,URINE 30-50 /HPF (0-4)
[2017-11-14 05:45] LABS: BASOPHILS % (AUTO) 0.5 % (0-1); EOSINOPHILS # (AUTO) 0.1 X10'3 (0-0.9); EOSINOPHILS % (AUTO) 2.1 % (0-6); HEMATOCRIT 28.4 % (35.0-45.0); HEMOGLOBIN 9.3 g/dl (12.0-16.0); LYMPHOCYTES # (AUTO) 1.5 X10'3 (1.1-4.8); LYMPHOCYTES % (AUTO) 21.3 % (21-51); MEAN CORPUSCULAR HEMOGLOBIN 36.9 PG (27.0-31.0); MEAN CORPUSCULAR HGB CONC 32.6 % (33.0-36.5); MEAN PLATELET VOLUME 8.3 FL (7.4-10.4); MONOCYTES # (AUTO) 0.3 X10'3 (0-0.9); MONOCYTES % (AUTO) 4.1 % (2-12); PLATELET COUNT 113 X10'3 (140-440); RED BLOOD COUNT 2.52 X10'6 (4.20-5.60); RED CELL DISTRIBUTION WIDTH 17.4 % (11.5-14.5); WHITE BLOOD COUNT 6.9 X10'3 (4.5-11.0)
[2017-11-14 06:03] LABS: INR 1.1 INR; PARTIAL THROMBOPLASTIN TIME 30 SECONDS (22-32); PROTHROMBIN TIME 10.9 SECONDS (9.0-12.0)
[2017-11-14 06:19] LABS: ALANINE AMINOTRANSFERASE 48 U/L (12-78); ALBUMIN 2.7 G/DL (3.4-5.0); ALBUMIN/GLOBULIN RATIO 0.5 (1.1-1.5); ALKALINE PHOSPHATASE 79 IU/L (46-116); ANION GAP 6 (8-16); ASPARTATE AMINO TRANSFERASE 61 U/L (10-37); BILIRUBIN,TOTAL 0.9 MG/DL (0.1-1.0); BLOOD UREA NITROGEN 19 MG/DL (7-18); BUN/CREATININE RATIO 7.3 (6.6-38.0); CALCIUM 8.2 MG/DL (8.5-10.1); CHLORIDE 101 MMOL/L (99-107); CREATININE 2.62 MG/DL (0.40-0.90); MAGNESIUM 1.7 MG/DL (1.5-2.4); POTASSIUM 4.2 MMOL/L (3.5-5.1); SODIUM 138 MMOL/L (135-145); TOTAL CARBON DIOXIDE 31.3 MMOL/L (24-32); TOTAL PROTEIN 7.9 G/DL (6.4-8.2); eGFR 19 ML/MIN
[2017-11-14 06:20] LABS: GLUCOSE 85 MG/DL (70-104)
[2017-11-14 07:00] VITALS: BP 168/77
[2017-11-14] MEDS: clopidogrel 75mg tablet PO SCH (07:17)
[2017-11-14] MEDS: aspirin 81mg tablet.DR PO SCH (07:17)
[2017-11-14] MEDS: HYDROcodone/acetaminophen 5mg/325mg tablet PO PRN ×3 (07:17→22:06)
[2017-11-14] MEDS: cloNIDine 0.1 mg tablet PO SCH ×3 (07:17→21:56)
[2017-11-14] MEDS: hydrALAZINE 25 MG tablet PO SCH ×2 (07:17→15:55)
[2017-11-14] MEDS: calcium acetate 667mg (PhosLO) capsule PO SCH ×4 (07:17→21:57)
[2017-11-14] MEDS: atenolol 25mg tablet PO SCH ×2 (07:18→21:56)
[2017-11-14] MEDS: docusate sod 100mg capsule PO SCH ×2 (07:18→21:57)
[2017-11-14] MEDS: gabapentin 300mg capsule PO SCH (07:18)
[2017-11-14] MEDS: furosemide 40mg tablet PO SCH ×2 (07:18→21:56)
[2017-11-14] MEDS: insulin glargine (Lantus) pen - multi-dose SQ SCH (07:23)
[2017-11-14] MEDS: PROPANTHELINE BROMIDE 15MG TAB PO SCH (07:27)
[2017-11-14] MEDS: heparin, porcine 5000 units/ml vial SQ SCH ×2 (07:28→21:56)
[2017-11-14 07:45] LABS: EOSINOPHILS % (MANUAL) 3 % (0-6); LYMPHOCYTES % (MANUAL) 17 % (21-51); MONOCYTES % (MANUAL) 3 % (2-12); NEUTROPHILS % (MANUAL) 72 % (42-75); TOTAL CELLS COUNTED 100
[2017-11-14 07:46] LABS: ANISOCYTOSIS 1+; BASOPHILS % (MANUAL) 5 % (0-1); PLATELET ESTIMATE DECREASED
[2017-11-14 07:47] LABS: SCHISTOCYTES 1+
[2017-11-14] MEDS ORDERED: normal saline 1000ml 100 ML IV PRN (07:59)
[2017-11-14] MEDS ORDERED: LIDOcaine 1% (10mg/ml) 2ml vial SQ ONE (08:00)
[2017-11-14] MEDS ORDERED: albumin (human) 25% 100ml IV 100 ML IV PRN (08:00)
[2017-11-14] MEDS ORDERED: epoetin 20,000 units/ml inj IV ONE (08:00)
[2017-11-14 11:00] VITALS: BP 175/86
[2017-11-14] MEDS ORDERED: iohexol 350MG/ML 100ml bottle IV ONE (13:45)
[2017-11-14 15:00] VITALS: BP 184/85
[2017-11-14] MEDS: ondansetron 4mg rapidly disintigrating tab PO PRN (15:55)
[2017-11-14 18:00] VITALS: BP 169/76
[2017-11-14 22:00] VITALS: BP 164/77
[2017-11-15] MEDS: hydrALAZINE 25 MG tablet PO SCH ×2 (00:02→08:58)
[2017-11-15 02:00] VITALS: BP 162/78
[2017-11-15 05:55] LABS: BASOPHILS % (AUTO) 0.2 % (0-1); EOSINOPHILS # (AUTO) 0.1 X10'3 (0-0.9); EOSINOPHILS % (AUTO) 1.6 % (0-6); HEMATOCRIT 26.3 % (35.0-45.0); HEMOGLOBIN 8.6 g/dl (12.0-16.0); LYMPHOCYTES # (AUTO) 1.3 X10'3 (1.1-4.8); MEAN CORPUSCULAR HEMOGLOBIN 36.9 PG (27.0-31.0); MEAN CORPUSCULAR HGB CONC 32.8 % (33.0-36.5); MEAN CORPUSCULAR VOLUME 112.5 FL (78-98); MEAN PLATELET VOLUME 8.8 FL (7.4-10.4); MONOCYTES # (AUTO) 0.2 X10'3 (0-0.9); MONOCYTES % (AUTO) 3.8 % (2-12); NEUTROPHILS # (AUTO) 4.7 X10'3 (1.8-7.7); NEUTROPHILS % (AUTO) 74.4 % (42-75); PLATELET COUNT 116 X10'3 (140-440); RED BLOOD COUNT 2.34 X10'6 (4.20-5.60); WHITE BLOOD COUNT 6.4 X10'3 (4.5-11.0)
[2017-11-15 06:00] VITALS: BP 169/76
[2017-11-15 06:21] LABS: INR 1.1 INR; PARTIAL THROMBOPLASTIN TIME 30 SECONDS (22-32); PROTHROMBIN TIME 11.2 SECONDS (9.0-12.0)
[2017-11-15 06:31] LABS: ALANINE AMINOTRANSFERASE 41 U/L (12-78); ALBUMIN 2.7 G/DL (3.4-5.0); ALBUMIN/GLOBULIN RATIO 0.6 (1.1-1.5); ALKALINE PHOSPHATASE 84 IU/L (46-116); ANION GAP 6 (8-16); ASPARTATE AMINO TRANSFERASE 46 U/L (10-37); BILIRUBIN,TOTAL 0.9 MG/DL (0.1-1.0); BLOOD UREA NITROGEN 25 MG/DL (7-18); BUN/CREATININE RATIO 7.8 (6.6-38.0); CALCIUM 8.1 MG/DL (8.5-10.1); CHLORIDE 99 MMOL/L (99-107); CREATININE 3.19 MG/DL (0.40-0.90); MAGNESIUM 1.8 MG/DL (1.5-2.4); POTASSIUM 4.7 MMOL/L (3.5-5.1); SODIUM 135 MMOL/L (135-145); TOTAL PROTEIN 7.6 G/DL (6.4-8.2); eGFR 15 ML/MIN
[2017-11-15 06:32] LABS: GLUCOSE 167 MG/DL (70-104)
[2017-11-15] MEDS: calcium acetate 667mg (PhosLO) capsule PO SCH (07:00)
[2017-11-15 08:00] LABS: ANISOCYTOSIS 1+; PLATELET ESTIMATE DECREASED; POIKILOCYTOSIS FEW; POLYCHROMASIA 1+
[2017-11-15] MEDS: PROPANTHELINE BROMIDE 15MG TAB PO SCH (08:00)
[2017-11-15] MEDS: insulin glargine (Lantus) pen - multi-dose SQ SCH (08:00)
[2017-11-15 08:01] LABS: TARGET CELLS 1+
[2017-11-15] MEDS: gabapentin 300mg capsule PO SCH (08:58)
[2017-11-15] MEDS: atenolol 25mg tablet PO SCH (08:58)
[2017-11-15] MEDS: aspirin 81mg tablet.DR PO SCH (08:58)
[2017-11-15] MEDS: cloNIDine 0.1 mg tablet PO SCH (08:58)
[2017-11-15] MEDS: furosemide 40mg tablet PO SCH (08:58)
[2017-11-15] MEDS: clopidogrel 75mg tablet PO SCH (08:58)
[2017-11-15] MEDS: docusate sod 100mg capsule PO SCH (08:58)
[2017-11-15] MEDS: heparin, porcine 5000 units/ml vial SQ SCH (08:59)
[2017-11-15] MEDS: HYDROcodone/acetaminophen 5mg/325mg tablet PO PRN (09:06)
[2017-11-15] MEDS: ondansetron 4mg rapidly disintigrating tab PO PRN (09:06)
== END 2017-11-15 13:30 | disposition home health service, planned readmission (86) | DRG 194 ==
LOC: ER 15:52 → PCU 3S 20:52 → CMPBEDREQ 22:38
PROVIDERS: ADMIT Internal Medicine Critical Care Medicine; ATTEND Internal Medicine Critical Care Medicine
PROC: 5A1D70Z Performance of Urinary Filtration, Intermittent, Less than 6 Hours Per Day (ICD-10-PCS; 2017-11-13)
PROC: 5A1D70Z Performance of Urinary Filtration, Intermittent, Less than 6 Hours Per Day (ICD-10-PCS; principal; 2017-11-14)
PROC: B3201ZZ Computerized Tomography (CT Scan) of Thoracic Aorta using Low Osmolar Contrast (ICD-10-PCS; 2017-11-14)
DX: I13.2 Hypertensive heart and chronic kidney disease with heart failure and with stage 5 chronic kidney disease, or end stage renal disease (principal); N18.6 End stage renal disease; E11.22 Type 2 diabetes mellitus with diabetic chronic kidney disease; I50.9 Heart failure, unspecified; B19.20 Unspecified viral hepatitis C without hepatic coma; I25.10 Atherosclerotic heart disease of native coronary artery without angina pectoris; R09.02 Hypoxemia; Z82.41 Family history of sudden cardiac death; Z82.49 Family history of ischemic heart disease and other diseases of the circulatory system; Z82.5 Family history of asthma and other chronic lower respiratory diseases; Z83.3 Family history of diabetes mellitus; Z99.2 Dependence on renal dialysis; Z68.1 Body mass index [BMI] 19.9 or less, adult; Z79.899 Other long term (current) drug therapy
CPT/HCPCS: 36415; 71045; 71275; 80053; 80061; 81001; 82948; 83036; 83690; 83735; 83880; 84484; 85025; 85610; 85730; 87070; 87077; 87088; 87186; 93005; 93306; 96374; 97116; 97162; 97530; 99285; A6213; A6402; A6449; G0257; J0780; J0885; J1644; J1815; J2270; J3490; J7030; Q9967

== ENCOUNTER 2018-02-10 09:56 | Day surgery (SDC) | payer MEDICAID ==
[~2018-02-10] VITALS: Ht 175.3 cm; Wt 51.6 kg
[2018-02-10] MEDS ORDERED: normal saline 1000ml 1,000 ML IV SCH (10:20)
[2018-02-10 10:25] VITALS: BP 167/83
[2018-02-10 11:05] LABS: BASOPHILS % (AUTO) 0.3 % (0-1); EOSINOPHILS # (AUTO) 0.3 X10'3 (0-0.9); EOSINOPHILS % (AUTO) 3.8 % (0-6); HEMATOCRIT 38.3 % (35.0-45.0); LYMPHOCYTES # (AUTO) 1.1 X10'3 (1.1-4.8); LYMPHOCYTES % (AUTO) 16.3 % (21-51); MEAN CORPUSCULAR HEMOGLOBIN 33.4 PG (27.0-31.0); MEAN CORPUSCULAR HGB CONC 33.9 % (33.0-36.5); MEAN CORPUSCULAR VOLUME 98.3 FL (78-98); MEAN PLATELET VOLUME 8.3 FL (7.4-10.4); MONOCYTES # (AUTO) 0.4 X10'3 (0-0.9); MONOCYTES % (AUTO) 5.5 % (2-12); NEUTROPHILS % (AUTO) 74.1 % (42-75); PLATELET COUNT 118 X10'3 (140-440); RED BLOOD COUNT 3.89 X10'6 (4.20-5.60); RED CELL DISTRIBUTION WIDTH 16.8 % (11.5-14.5); WHITE BLOOD COUNT 6.7 X10'3 (4.5-11.0)
[2018-02-10 11:14] LABS: ALBUMIN 2.7 G/DL (3.4-5.0); ANION GAP 9 (8-16); BLOOD UREA NITROGEN 43 MG/DL (7-18); BUN/CREATININE RATIO 8.6 (6.6-38.0); CALCIUM 8.3 MG/DL (8.5-10.1); CHLORIDE 95 MMOL/L (99-107); CREATININE 5.01 MG/DL (0.40-0.90); POTASSIUM 4.3 MMOL/L (3.5-5.1); SODIUM 133 MMOL/L (135-145); TOTAL CARBON DIOXIDE 29.5 MMOL/L (24-32); eGFR 9 ML/MIN
[2018-02-10 11:15] LABS: GLUCOSE 204 MG/DL (70-104)
[2018-02-10] MEDS ORDERED: fentaNYL/PF 50MCG/1 ML 2ML syringe IV PRN (11:25)
[2018-02-10] MEDS ORDERED: heparin 1,000 UNITS/NS 500ml 500 ML ICATH ONE ×2 (11:25→11:45)
[2018-02-10] MEDS ORDERED: midazolam 2 mg/2 ml injection IV PRN (11:25)
[2018-02-10] MEDS ORDERED: LIDOcaine 1%/PF 5ML 10 MG/ML VIAL SQ ONE (11:25)
[2018-02-10] MEDS ORDERED: iohexol 300mg/ml 100ml inj. ONE (11:31)
[2018-02-10] MEDS ORDERED: LIDOcaine 1%/PF 5ML 10 MG/ML VIAL ONE (11:31)
[2018-02-10] MEDS ORDERED: ondansetron/PF 4mg/2ml inj ONE (11:43)
[2018-02-10] MEDS ORDERED: fentaNYL/PF 50MCG/1 ML 2ML syringe ONE ×2 (11:44→12:00)
[2018-02-10] MEDS ORDERED: midazolam 2 mg/2 ml injection ONE ×2 (11:44→12:00)
[2018-02-10] MEDS ORDERED: heparin 1,000 UNITS/NS 500ml 500 ML ONE (11:44)
[2018-02-10] MEDS ORDERED: ondansetron/PF 4mg/2ml inj IV ONE (12:20)
[2018-02-10 12:30] VITALS: BP 130/91
[2018-02-10 12:45] VITALS: BP 162/82
[2018-02-10 13:00] VITALS: BP 162/74
[2018-02-10 13:15] VITALS: BP 161/78
[2018-02-10 13:45] VITALS: BP 164/81
== END 2018-02-10 13:45 | disposition home or self-care (01) ==
LOC: SSTAY O 09:56
PROVIDERS: ATTEND Radiology Diagnostic Radiology
DX: T82.858A Stenosis of other vascular prosthetic devices, implants and grafts, initial encounter (principal); I25.10 Atherosclerotic heart disease of native coronary artery without angina pectoris; E11.22 Type 2 diabetes mellitus with diabetic chronic kidney disease; I13.2 Hypertensive heart and chronic kidney disease with heart failure and with stage 5 chronic kidney disease, or end stage renal disease; N18.6 End stage renal disease; I50.9 Heart failure, unspecified; J44.9 Chronic obstructive pulmonary disease, unspecified; F17.210 Nicotine dependence, cigarettes, uncomplicated; K21.9 Gastro-esophageal reflux disease without esophagitis; B19.20 Unspecified viral hepatitis C without hepatic coma; Z86.14 Personal history of Methicillin resistant Staphylococcus aureus infection; Z86.74 Personal history of sudden cardiac arrest; Z95.5 Presence of coronary angioplasty implant and graft; Z90.49 Acquired absence of other specified parts of digestive tract; Z99.2 Dependence on renal dialysis; Z79.4 Long term (current) use of insulin; Z79.82 Long term (current) use of aspirin; Z98.890 Other specified postprocedural states; Z79.899 Other long term (current) drug therapy; Y83.2 Surgical operation with anastomosis, bypass or graft as the cause of abnormal reaction of the patient, or of later complication, without mention of misadventure at the time of the procedure; Y92.89 Other specified places as the place of occurrence of the external cause
CPT/HCPCS: 36415; 36902; 76937; 80048; 82948; 85025; 99152; 99153; C1725; C1769; C1894; J1644; J2001; J2250; J2405; J3010; J7030; Q9967; A4620

== ENCOUNTER 2018-08-13 19:15 | Inpatient (IN) | payer MEDICAID | END 2018-08-16 15:00 | disposition home or self-care (01) | LOC: ER 19:15 → ED HOLD 23:36 → ORTHO 4S 08-14 01:08 ==

== ENCOUNTER 2018-08-17 22:08 | Inpatient (IN) | payer MEDICAID | END 2018-08-22 14:30 | disposition home or self-care (01) | LOC: ER 22:08 → ED HOLD 08-18 05:01 → PCU 3S 08-18 07:00 ==